=== PATIENT | male | born 2000 | race Caucasian/White ===

== ENCOUNTER 2025-03-17 07:55 | Outpatient (RCR) | payer OTHER, MEDICAID, SELFPAY | END 2025-03-17 23:59 | disposition home or self-care (01) | LOC: HO.PHPA 07:55 | PROVIDERS: Visit Provider Psychiatry & Neurology Psychiatry | DX: F90.9 Attention-deficit hyperactivity disorder, unspecified type (principal); F41.1 Generalized anxiety disorder; F10.90 Alcohol use, unspecified, uncomplicated ==

== ENCOUNTER 2025-05-31 13:04 | Outpatient (AMB) | payer OTHER, MEDICAID, SELFPAY ==
[2025-05-31 13:09] VITALS: BP 122/62; PULSE 74; O2SAT 98; BMI 19.7
--- NOTE | 2025-05-31 13:09 | MHC.OFFVIS ---
Vital Signs 05/31/25 13:09 Height 6 ft 3 in Weight 158 lb BMI 19.7 BP 122/62 Pulse 74 Pulse Oximetry (%) 98 Intake Visit Reasons: MAT Intake Allergies celiac Allergy (Severe, Uncoded 05/31/25 13:33) Unknown Medication List - Last Reconciled 05/31/25 by RICHI Pradhan albuterol sulfate 90 mcg/actuation 2 puffs inhalation Q6H PRN buspirone 10 mg PO TID HPI Comments Details: A 25-year-old male presents for a MAT intake r/t AUD. Received inpatient detox/rehab in [facility] from January 24 through March 18 and receive Vivitrol during stay. Reports no Vivitrol or naltrexone tablets 50 mg tablets since discharge and has had several relapses, although at present has abstain from alcohol consumption for the past 2 weeks. Denies opiates, and other substances. Acknowledges vaping for nicotine and smoking cannabis. Presently lives with mom, dad, brother, and twin sister. Reports will be starting a new job in [place]. Receives services at [facility] for mental health and will occasionally attend an AA meeting. Review of Systems Const All systems reviewed & are unremarkable except as noted in HPI and below Physical Exam Vital Signs: Last Vital Signs Pulse 74 05/31/25 13:09 BP 122/62 05/31/25 13:09 Pulse Ox 98 05/31/25 13:09 BMI result Body Mass Index 19.7 Const General: cooperative Results AMB 14 Panel Urine Drug Screen Urine Marijuana (THC) Positive Last Edit by Bucky Zurita CMA on 05/31/25 13:15 Urine Cocaine Negative Last Edit by Bucky Zurita CMA on 05/31/25 13:15 Urine Morphine Negative Last Edit by Bucky Zurita CMA on 05/31/25 13:15 Urine Methamphetamine Negative Last Edit by Bucky Zurita CMA on 05/31/25 13:15 Urine Amphetamine Negative Last Edit by Bucky Zurita CMA on 05/31/25 13:15 Urine Benzodiazepine Negative Last Edit by Bucky Zurita CMA on 05/31/25 13:15 Urine Barbiturates Negative Last Edit by Bucky Zurita CMA on 05/31/25 13:15 Urine Methadone Negative Last Edit by Bucky Zurita CMA on 05/31/25 13:15 Urine Buprenorphine Negative Last Edit by Bucky Zurita CMA on 05/31/25 13:15 Urine Tricyclic Antidepressant Negative Last Edit by Bucky Zurita CMA on 05/31/25 13:15 Urine MDMA Negative Last Edit by Bucky Zurita CMA on 05/31/25 13:15 Urine Oxycodone Negative Last Edit by Bucky Zurita CMA on 05/31/25 13:15 Urine Phencyclidine Negative Last Edit by Bucky Zurita CMA on 05/31/25 13:15 Urine Propoxyphene Negative Last Edit by Bucky Zurita CMA on 05/31/25 13:15 Results Reviewed Results Reviewed: Laboratory Last Values POC Urine Buprenorphine Negative 05/31/25 13:14 POC Urine Morphine Negative 05/31/25 13:14 POC Urine Oxycodone Negative 05/31/25 13:14 POC Urine Methadone Negative 05/31/25 13:14 POC Urine Propoxyphene Negative 05/31/25 13:14 POC Urine Barbiturates Negative 05/31/25 13:14 POC U Tricyclic Antidpr Negative 05/31/25 13:14 POC Urine PCP Negative 05/31/25 13:14 POC Ur Amphetamines Negative 05/31/25 13:14 POC Ur Methamphetamine Negative 05/31/25 13:14 POC Urine MDMA Negative 05/31/25 13:14 POC Ur Benzodiazepine Negative 05/31/25 13:14 POC Urine Cocaine Negative 05/31/25 13:14 POC Ur Marijuana (THC) Positive 05/31/25 13:14 Assessment & Plan Assessment & Plan (1) Alcohol use disorder: Code(s): F10.90 - Alcohol use, unspecified, uncomplicated Category: Medical Plan The plan of care is to start on naltrexone 50 mg, folic acid 1 mg, and thiamine 100 mg daily. Vivitrol ordered pending insurance approval. Education provided regarding risk reduction activities to minimize vaping and cannabis use and naltrexone/Vivitrol including purpose, side effects, and general medication information. Follow-up in 1 month or sooner if needed. Orders: Orders AMB 14 Panel Urine Drug Screen Today Z51.81 - Encounter for therapeutic drug level monitoring Medications: New naltrexone One tablet by mouth daily 50 mg PO DAILY 30 tabs 0RF 30 days folic acid One tablet by mouth daily. 1 mg PO DAILY 30 tabs 0RF 30 days thiamine mononitrate (vit B1) One tablet by mouth daily 100 mg PO DAILY 30 tabs 0RF 30 days Patient Instructions: - Restart naltrexone 50 mg daily. - Start thiamine 100 mg and folic acid 1 mg daily. - Vivitrol ordered pending insurance approval. - Engage in risk reduction activities to minimize vaping and cannabis use. - Continue to attend AA meetings. - Follow-up in 1 month or sooner if needed. - Call with questions, concerns, or to report side effects/new onset of symptoms to [facility]. - The patient verbalized understanding and agreed with plan of care. Coding Level of Care Code New Pt Level 3 (11070) Diagnoses Alcohol use disorder F10.90
--- OUTSIDE RECORDS SUMMARY | 2025-05-31 17:01 | XMS_ITS ---
Author Name [facility] Organization Unknown Care Team Organization Name Specialty Phone Email Start Date End Da te [facility] Termed, PROVIDER Primary Care 06/18/202304/15 [facility] Ye Oden Primary Care 11/20/202204/15 [facility] MIS BRENNAN Primary Care 07/23/2022
--- OUTSIDE RECORDS SUMMARY | 2025-05-31 17:01 | XMS_ITS | Clinical Summary ---
Author Organization 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 Role Phone Unavailable Primary Care Provider Unavailabl e Encounters Date Type Department Care Team Description 05/18/2025 Population Health Risk Score [facility] (C3) Department [address] [facility] [address] [place] [id number] Provider, Population Health Generic from Last 3 Months Social History Tobacco Use Types Packs/Day Years Used Date Smoking Tobacco: Never Assessed Sex and Gender Information Value Date Recorded Sex Assigned at Male 03/21/2025 8:35 AM EDT Legal Sex Male 11:15 AM EDT Gender Identity Male 03/21/2025 8:35 AM EDT Sexual Orientation Straight 03/21/2025 8: 35 AM EDT Plan of Treatment Health Maintenance Due Date Last Done Comments Depression Screening 2000 HIV Screening 2000 SDOH Screening 2000 Disability Screening 2000 Pneumococcal Vaccine: Pediatrics (0 to 5 Years) and At-Risk Patients (6 to 49) Years (2 of 3 - PCV) 05/07/2003 05/07/2002, 02/05/2001, 2000, Additional history exists Alcohol/Substance Use Screening 2012 Tobacco Screening 2012 Family Planning (PISQ) 01/29/2015 Hepatitis C Screening 01/29/2018 COVID-19 Vaccine ( season) 2025 09/22/2021, 02/05/2021, 01/14/2021 Influenza Vaccine (#1) 2025 , 06/15/2022, 06/15/2022, Additional history exists DTaP/Tdap/Td Vaccines (9 - Td or Tdap) 11/28/2032 11/28/2022, 07/22/2012, 07/17/2011, Additional history exists Zoster Vaccines (1 of 2) 01/29/2050 RSV Patients and Patients Aged 60 years or older (1 - 1-dose 75+ series) 01/29/2075 Hepatitis B Vaccines Completed 2000, 2000, 2000 HIB Vaccines Completed 05/26/2001, 05/16, 2000, Additional history exists IPV Vaccines Completed 01/28/2005, 05/16, 2000, Additional history exists HPV Vaccines Completed 08/01/2014, 09/15, 07/26/2013 Meningococcal Vaccine Completed 08/09/2016, 011 Hepatitis A Vaccines Aged Out No long er eligible based on patient's age to complete this topic Meningococcal B Vaccine Aged Out No l onger eligible based on patient's age to complete this topic RSV under 20 months Aged Out No longe r eligible based on patient's age to complete this topic Rotavirus Vaccines Aged Out No longer eligible based on patient's age to complete this topic Insurance [facility] [id number]
--- OUTSIDE RECORDS SUMMARY | 2025-05-31 17:01 | XMS_ITS | Clinical Summary ---
Author Organization [facility] [address] [facility] Address [address] [place] [phone] Phone Care Team Providers Care Cash Processing Specialist Name Role Phone Zehra Christensen MD Primary Care Provider [phone] Allergies Active Allergy Reactions Criticality Noted Date Comments Gluten 04/06/2015 Gluten Meal Medications albuterol HFA (PROAIR HFA ; PROVENTIL HFA ; VENTOLIN HFA) 90 mcg/actuation inhaler Inhale 2 Puffs into the lungs every 4 hours as needed for Cough or Wheezing. 3 Active famotidine (PEPCID) 20 mg tablet Take 1 Tablet by mouth 2 times daily as needed for Heartburn. 3 Active fluticasone propionate (FLONASE) 50 mcg/actuation nasal spray 2 Sprays by Nasal route daily. 3 Active loratadine (CLARITIN) 10 mg tablet Take 1 Tablet by mouth daily. 3 Active melatonin 3 mg capsule Take by mouth. Activ e MULTIVITAMIN ORAL Take by mouth. Activ e naloxone (NARCAN) 4 mg/actuation nasal spray KIT (Take home med ONLY) Administer 1 spray (4 mg total) into affected nostril(s) See administration instructions. Active busPIRone (BUSPAR) 10 mg tablet Take 1 tablet (10 mg total) by mouth 3 (three) times a day. 90 tablet 5 Active Active Problems Problem Noted Date Diagnosed Date Depressive disorder 09/13/2024 Hearing loss in right ear 09/13/2024 Overview (09/13/2024): partial Nausea 09/13/2024 Anxiety 01/04/2023 Uncomplicated asthma 05/01/2017 Celiac disease 03/09/2013 Overview (09/13/2024): Dr. Suero - biopsy positive ADD (attention deficit disorder) 07/17/2011 Behavior problem 07/17/2011 Encounters Date Type Department Care Team Description 03/29/2025 12:30 PM EDT Office Visit Adult Medicine [address] [phone] Zehra Christensen MD Hospital discharge follow-up (Primary Dx); Alcohol use disorder; Cannabis use disorder in remission; Generalized anxiety disorder 03/09/2025 Telephone Adult Medicine [address] [phone] Zehra Christensen MD from Last 3 Months Immunizations Name Administration Dates Next Due DTaP (Infanrix) 6wks to less than 7yo ,08/20/2001,2000,05/21,2000 [id number] (Pentacel) 2mo to less than 5yo 05/26/2001,2000,2000,04/01 HPV, Quadrivalent 08/01/2014,09/28/2013,07/26/20 13 Hepatitis B Pediatric (Enger ix B; Recombivax HB) to less than 20 yo 2000,2000,2000 IPV Inactivated polio (Ipol) 6wks and older 01/28/2005,2000,2000,04/01 Influenza Quadravalent, MDCK , 0.5ml, preservative free (Flucelvax) 6mo and older 06/12/2020 Influenza trivalent, 0.5mL, preservative free (Fluarix; FluLaval; Fluzone) ages 6mo and older (Afluria) 3 years and older 06/15/2022,07/07/2018,07/10/2017,08/09,08/02/2015,08/01/2014,07/26/2013 ,07/17/2011,07/17/2010,07/21/2009,12/2007,08/11/2007,07/18/2006, 5 Influenza trivalent, with pr eservative (Fluzone; Afluria) 6mo and older 07/22/2012 MMR, measles mumps and rubel la Live (Priorix; M-M-R II) 12mo and older 02/09/2004,05/26/2001 Meningococcal MCV4P 08/09/2016,07/17/2011 Pneumococcal Conjugate Vacci ne, 7 Valent 02/05/2001,2000,2000,05/21 Pneumococcal polysaccharide 23 valent (Pneumovax 23) 2yo and older 05/07/2002 Tdap Tetanus diptheria acell ular pertussis (Boostrix; Adacel) 7yo and older 11/28/2022,07/22/2012,07/17/2011 Varicella live (Varivax) 12m o and older 03/09/2005,02/05/2001 Surgical History Surgery Date Site/Laterality Comments OTHER SURGICAL HISTORY PROCEDURE: DENIES PREVIOUS SURGERY COLONOSCOPY PROCEDURE: HISTORICAL COLONOSCOPY Medical History Medical History Date Comments Routine or child heal th check DX:Routine or child h ealth check Unspecified otitis media mult DX:Unsp ecified otitis media Acute bronchiolitis due to o ther infectious organisms 07/2000 DX:Acute bronchiolitis due t o other infectious organisms Unspecified asthma(493.90) 10/16,12/15,06/16 DX:Un specified asthma(493.90); COMMENT: RAD Varicella without mention of complication 04/2005 DX:Varicella without mention of complication Celiac disease 03/09/2013 DX:Celiac diseas e Hearing loss in right ear DX:Hea ring loss in right ear; COMMENT: partial H. pylori infection 2014 DX:H. pylori infection Nausea DX:Nausea Depressive disorder DX:Depressiv e disorder Anxiety 01/04/2023 DX:Anxiety Abdominal cramping DX:Abdominal cramping Irritable bowel syndrome DX:Irri table bowel syndrome Family History Medical History Relation Name Comments Hypertension Father DM type 2. Lung cancer Maternal Grandfather Lung cancer Maternal Grandmother D Diabetes Paternal Grandfather Heart attack Paternal Grandfather Other: ABD ANEURYSM Paternal Grandfather Relation Name Status Comments Brother Alive [id number] D, Jonathan and donald Father Alive 1964 - overwe ht;dm, HTN Maternal Grandfather Lung ca ncer, Alcoholism and smoking; CHOL Maternal Grandmother Lung ca ncer Mother Alive 1967 - tachycar kya arrhythmia Paternal Grandfather [place], dm Paternal Grandmother Alive Healthy X SMOKING Sister Alive -CARITO - h ealthy Social History Tobacco Use Types Packs/Day Years Used Date Smoking Tobacco: Every Day Smokeless Tobacco: Never Tobacco Cessation:Ready to Q uit: Not Asked; Counseling Given: Not Answered Alcohol Use Standard Drinks/Week Comments No 0 (1 standard drink = 0.6 oz pur e alcohol) Sex and Gender Information Value Date Recorded Sex Assigned at Not on file Legal Sex Male 12:41 AM EST Gender Identity Not on file Sexual Orientation Not on file Obstetrics History Last Filed Vital Signs Vital Sign Reading Time Taken Comments Blood Pressure 104/62 03/29/2025 12:55 PM EDT Pulse 76 03/29/2025 12:55 PM EDT Temperature 36.6 C (97.8 F) 03/29/2025 12:55 PM EDT Respiratory Rate 16 03/29/2025 12:55 PM EDT Oxygen Saturation 98% 03/29/2025 12:55 PM EDT Inhaled Oxygen Concentration - - Weight 76.2 kg (168 lb) 03/29/2025 12:55 PM EDT Height 190.5 cm (6' 3 ) 03/29/2025 12:55 PM EDT Body Mass Index 21 03/29/2025 12:55 PM EDT Plan of Treatment Upcoming Encounters Date Type Department Care Team (Late st Contact Info) Description 10/12/2025 9:30 AM EST Office Visit Adult Medicine [address] [phone] Zehra Christensen MD [address] [place] [address] Health Maintenance Due Date Last Done Comments Hepatitis A Vaccines (1 of 2 - Risk 2-dose series) 01/29/2019 HIV Screening 08/24/2022 Hepatitis C Screening 08/24/2022 Social Influencers of Health Screening 08/24/2022 Depression Screening 09/15/2024 COVID-19 Vaccine (4 - season) 2025 09/22/2021, 02/05/2021, 01/14/2021 Influenza Vaccine (#1) 2025 5, 06/15/2022, 06/12/2020, Additional history exists Cholesterol Screening (Lipid Panel) 06/12/2025 06/12/2020 DTaP,Tdap,and Td Vaccines (9 - Td or Tdap) 11/28/2032 11/28/2022, 07/22/2012, 07/17/2011, Additional history exists Pneumococcal Vaccine: Pediatrics (0 to 5 Years) and At-Risk Patients (6 to 49 Years) (2 of 2 - PCV20 or PCV21) 01/29/2050 05/07/2002, 02/05/2001, 2000, Additional history exists Hepatitis B Vaccines Completed 2000, 2000, 2000 HIB Vaccines Completed 05/26/2001, 05/16, 2000, Additional history exists MMR Vaccines Completed 02/09/2004, 05/26/2001 IPV Vaccines Completed 01/28/2005, 05/16, 2000, Additional history exists Varicella Vaccines Completed 03/09/2005, 02/05/2001 HPV Vaccines Completed 08/01/2014, 09/15, 07/26/2013 Meningococcal ACWY Vaccine Completed 08/09/2016, Meningococcal B Vaccine Aged Out No l onger eligible based on patient's age to complete this topic RSV Immunization Patients Under 20 months Aged Out No longer eligible based on patient's age to complete this topic Procedures Procedure Name Priority Date/Time Associated Diagnosis Comments LIPID PANEL Routine 06/12/2020 from Last 3 Months or Most Recently Relevant to Health Maintenance Results * Lipid panel (06/12/2020) LDL/HDL Ratio 3 0 - 4 Triglycerides 78 0 - 150 mg/dL Cholesterol 129 0 - 200 mg/dL HDL 50 >=40 mg/dL LDL Cholesterol 64 0 - 100 mg/dL Blood Venous blood specimen / Unknown us Historical Provider LAB BLOOD ORDERABLES Glil l Result from Last 3 Months or Most Recently Relevant to Health Maintenance Insurance [employer] [place] [id number] Care Teams Cash Processing Specialist Relationship Specialty Start Date End Date Zehra Christensen MD [address] [place] [phone] PCP - General Internal Medicine 10/26/24
== END 2025-05-31 13:34 | disposition home or self-care (01) ==
PROVIDERS: Visit Provider Clinical Nurse Specialist Psychiatric/Mental Health
DX: F10.90 Alcohol use, unspecified, uncomplicated (principal); Z51.81 Encounter for therapeutic drug level monitoring
CPT/HCPCS: 99203

== ENCOUNTER → 2025-05-31 13:04 | Outpatient (BNVA) | payer OTHER, MEDICAID, SELFPAY | PROVIDERS: Visit Provider Clinical Nurse Specialist Psychiatric/Mental Health | DX: F10.90 Alcohol use, unspecified, uncomplicated (principal) | CPT/HCPCS: 80307 ==

== ENCOUNTER 2025-06-30 10:07 | Outpatient (AMB) | payer OTHER, MEDICAID, SELFPAY ==
--- NOTE | 2025-06-30 08:39 | AM.OFFVISNUR ---
Vital Signs 06/30/25 10:14 BP 100/60 Pulse 60 Pulse Oximetry (%) 99 Intake Visit Reasons: Injection Allergies celiac Allergy (Severe, Uncoded 06/30/25 10:15) Unknown Nursing Note Sandor presents today for his second Vivitrol injection, his first one was administered while at inpatient treatment center between January and March of 2025. He reports relapse after discharge though has now been alcohol free for over 6 weeks. Sandro is alert and oriented x 4, calm, cooperative and presents with appropriate affect. Sandro shared his history and current coping strategies. Currently seeking a psychiatrist with no response- one of his providers is assisting him with contact and follow-up, he also plans to inquire if he can re-establish care with [facility] where he was engaged with counseling for many years as a minor. Discussed AA and recommended a youth group that may be a good match for him- resource book given. Naltrexone contract reviewed and signed, Vivitrol education and ID materials given. Sandro reports no further questions at this time and knows to call the office with any questions or concerns. Follow up in 4 weeks for next injection. Assessment & Plan Assessment & Plan Orders: Orders AMB Naltrexone Injection Patient Supplied (NC) Today F10.90 - Alcohol use, unspecified, uncomplicated Medications: New Vivitrol ER (naltrexone microspheres) 380 mg IM ONCE 1 ea 0RF NS F10.90 - Alcohol use, unspecified, uncomplicated Coding
[2025-06-30 10:14] VITALS: BP 100/60; PULSE 60; O2SAT 99
--- OUTSIDE RECORDS SUMMARY | 2025-06-30 12:12 | XMS_ITS | Clinical Summary ---
Author Organization [facility] Address [address] [place] [phone] Phone Care Team Providers Care Gas Analyst Name Role Phone Zehra Christensen MD Primary Care Provider [phone] Allergies Active Allergy Reactions Criticality Noted Date Comments Gluten 04/06/2015 Gluten Meal Medications albuterol HFA (PROAIR HFA ; PROVENTIL HFA ; VENTOLIN HFA) 90 mcg/actuation inhaler Inhale 2 Puffs into the lungs every 4 hours as needed for Cough or Wheezing. 01/01/20 23 Active famotidine (PEPCID) 20 mg tablet Take 1 Tablet by mouth 2 times daily as needed for Heartburn. 02/18/20 23 Active fluticasone propionate (FLONASE) 50 mcg/actuation nasal spray 2 Sprays by Nasal route daily. 01/29/20 23 Active loratadine (CLARITIN) 10 mg tablet Take 1 Tablet by mouth daily. 01/29/20 23 Active melatonin 3 mg capsule Take by mouth. Activ e MULTIVITAMIN ORAL Take by mouth. Activ e naloxone (NARCAN) 4 mg/actuation nasal spray KIT (Take home med ONLY) Administer 1 spray (4 mg total) into affected nostril(s) See administration instructions. Active busPIRone (BUSPAR) 10 mg tablet Take 1 tablet (10 mg total) by mouth 3 (three) times a day. 90 tablet 03/29/20 25 Active amoxicillin-cl avulanate (AUGMENTIN) 875-125 mg per tablet Take 1 tablet by mouth every 12 (twelve) hours for 7 days. 14 tablet 06/24/20 25 025 Active ketorolac (TORADOL) 10 mg tablet Take 1 tablet (10 mg total) by mouth every 6 (six) hours if needed for moderate pain for up to 5 days. 20 tablet 06/24/20 25 025 Active Problems Problem Noted Date Diagnosed Date Depressive disorder 09/13/2024 Hearing loss in right ear 09/13/2024 Overview (09/13/2024): partial Nausea 09/13/2024 Anxiety 01/04/2023 Uncomplicated asthma 05/01/2017 Celiac disease 03/09/2013 Overview (09/13/2024): Dr. Suero - biopsy positive ADD (attention deficit disorder) 07/17/2011 Behavior problem 07/17/2011 Encounters Date Type Department Care Team Description 06/24/2025 1:05 AM EDT - 06/24/2025 3:36 AM EDT Emergency [facility] Emergency [address] [place] [address] Acute non-recurrent sinusitis, unspecified location (Primary Dx) Discharge Disposition: Home or Self Care from Last 3 Months Immunizations Immunization Administration Dates Next Due DTaP (Infanrix) 6wks to less than 7yo ,08/20/2001,2000,05/21,2000 [id number] (Pentacel) 2mo to less than 5yo 05/26/2001,2000,2000,04/01 HPV, Quadrivalent 08/01/2014,09/28/2013,07/26/20 13 Hepatitis B Pediatric (Enger ix B; Recombivax HB) to less than 20 yo 2000,2000,2000 IPV Inactivated polio (Ipol) 6wks and older 01/28/2005,2000,2000,04/01 Influenza Quadravalent, MDCK , 0.5ml, preservative free (Flucelvax) 6mo and older 06/12/2020 Influenza trivalent, 0.5mL, preservative free (Fluarix; FluLaval; Fluzone) ages 6mo and older (Afluria) 3 years and older 06/15/2022,07/07/2018,07/10/2017,08/09,08/02/2015,08/01/2014,07/26/2013 ,07/17/2011,07/17/2010,07/21/2009,12/0 12/2007,08/11/2007,07/18/2006, 5 Influenza trivalent, with pr eservative (Fluzone; [...] Grandfather Relation Name Status Comments Brother Alive [id number], Touretts and aspergers Father Alive 1964 - we ht;dm, HTN Maternal Grandfather Lung ca ncer, Alcoholism and smoking; CHOL Maternal Grandmother Lung ca ncer Mother Alive 1967 - tachycar kya arrhythmia Paternal Grandfather [place], dm Paternal Grandmother Alive Healthy X SMOKING [...] Sign Reading Time Taken Comments Blood Pressure 111/72 06/24/2025 2:05 AM EDT Pulse 58 06/24/2025 2:05 AM EDT Temperature 36.4 C (97.5 F) 06/24/2025 2:05 AM EDT Respiratory Rate 12 06/24/2025 2:05 AM EDT Oxygen Saturation 99% 06/24/2025 2:05 AM EDT Inhaled Oxygen Concentration - - Weight 77.1 kg (170 lb) 06/23/2025 8:03 PM EDT Height 190.5 cm (6' 3 ) 06/23/2025 8:03 PM EDT Body Mass Index 21.25 06/23/2025 8:03 PM EDT Plan of Treatment Upcoming Encounters Date Type Department Care Team (Late st Contact Info) Description 10/12/2025 9:30 AM EST Office Visit Adult Medicine [address] [phone] Zehra Christensen MD [address], [place] Health Maintenance Due Date Last Done Comments Hepatitis A Vaccines (1 of 2 - Risk 2-dose series) 01/29/2019 HIV Screening 08/24/2022 Hepatitis C Screening 08/24/2022 Social Influencers of Health Screening 08/24/2022 Depression Screening 09/15/2024 COVID-19 Vaccine ( season) 2025 09/22/2021, 02/05/2021, 01/14/2021 Influenza Vaccine (#1) 2025 , 06/15/2022, 06/12/2020, Additional history exists Cholesterol Screening (Lipid Panel) 06/12/2025 06/12/2020 DTaP,Tdap,and Td Vaccines (9 - Td or Tdap) 11/28/2032 11/28/2022, 07/22/2012, 07/17/2011, Additional history exists Pneumococcal Vaccine: Pediatrics (0 to 5 Years) and At-Risk Patients (6 to 49 Years) (2 of 2 - PCV20 or PCV21) 01/29/2050 05/07/2002, 02/05/2001, 2000, Additional history exists RSV Immunization Adult Patients (1 - 1-dose 75+ series) 01/29/2075 Hepatitis [...] Procedure Name Priority Date/Time Associated Diagnosis Comments CT MAXILLOFACIAL W CONTRAST STAT 06/24/2025 2:48 AM EDT CBC WITH AUTO DIFFERENTIAL STAT 06/23/2025 11:35 PM EDT LACTATE, WITH REFLEX STAT 06/23/2025 11:35 PM EDT COMPREHENSIVE METABOLIC PANEL STAT 06/23/2025 11:35 PM EDT CBC AND DIFFERENTIAL STAT 06/23/2025 11:35 PM EDT CULTURE BLOOD STAT 06/23/2025 11:35 PM EDT LIPID PANEL Routine 06/12/2020 from Last 3 Months or Most Recently Relevant to Health Maintenance Results * CT Maxillofacial w Contrast (06/24/2025 2:48 AM EDT) Anatomical Region Laterality Modality Head and Neck Computed Tomogra phy 06/24/2025 3:12 AM EDT Impressions 06/24/2025 3:12 AM EDT 1. No acute maxillofacial findings. This document has been electronically signed by: Chava Nash MD on 06/24/2025 03:12:29 Narrative 06/24/2025 3:12 AM EDT INDICATION: pain CT maxillofacial with contrast Comparison: None provided Findings: No acute fractures. No dislocations. Temporomandibular joints are intact. Paranasal sinuses and mastoid air cells clear. Left periorbital soft tissue metallic piercing. Otherwise unremarkable orbits. Visualized intracranial contents are within normal limits. No foreign bodies. Procedure Note Chava Nash - 06/24/2025 INDICATION: pain CT maxillofacial with contrast Comparison: None provided Findings: No acute fractures. No dislocations. Temporomandibular joints are intact. Paranasal sinuses and mastoid air cells clear. Left periorbital soft tissue metallic piercing. Otherwise unremarkable orbits. Visualized intracranial contents are within normal limits. No foreign bodies. IMPRESSION: 1. No acute maxillofacial findings. This document has been electronically signed by: Chava Nash MD on 06/24/2025 03:12:[address] PROCEDURES Final Res ult * Lactate, with reflex (06/23/2025 11:35 PM EDT) Pathologist [facility] LACTIC ACID 1.1 0.4 - 2.0 mmol/L LAB CHEMISTRY METHOD 06/24/2025 12:51 AM EDT [facility] Blood Venous blood specimen / Unknown Venipuncture / Unknown 06/23/2025 11:35 PM EDT 06/23/2025 11:55 PM EDT Sergio KRISHNAMURTHY LAB BLOOD ORDERABLES Final Result [facility] [address] [place] [address], [place] [phone] * CBC auto differential (06/23/2025 11:35 PM EDT) [facility] WBC 7.8 4.8 - 10.8 K/mcL LAB HEMETOLOGY METHOD 06/24/2025 12:01 AM EDT [facility] RBC 4.90 4.50 - 5.50 M/mcL LAB HEMETOLOGY METHOD 06/24/2025 12:01 AM EDT [facility] Hemoglobin 14.7 13.5 - 17.5 g/dL LAB HEMETOLOGY METHOD 06/24/2025 12:01 AM EDT [facility] Hematocrit 43.1 42.0 - 54.0 % LAB HEMETOLOGY METHOD 06/24/2025 [facility] MCV 88.9 79.0 - 98.0 FL LAB HEMETOLOGY METHOD 06/24/2025 12:01 AM EDT [facility] MCH 30.3 27.0 - 32.0 pcg LAB HEMETOLOGY METHOD 06/24/2025 12:01 AM [facility] MCHC 34.1 32.0 - 37.0 g/dL LAB HEMETOLOGY METHOD 06/24/2025 12:01 AM [facility] RDW 11.7 11.0 - 15.0 % LAB HEMETOLOGY METHOD 06/24/2025 12:01 AM [facility] Platelets 304 130 - 400 K/mcL LAB HEMETOLOGY METHOD 06/24/2025 12:01 AM [facility] MPV 10.1 7.0 - 11.0 FL LAB HEMETOLOGY METHOD 06/24/2025 12:01 AM [facility] NRBC 0.0 <1.0 % LAB HEMETOLOGY METHOD 06/24/2025 12:01 AM [facility] NRBC Absolute 0.00 <0.10 K/mcL LAB HEMETOLOGY METHOD 06/24/2025 12:01 AM [facility] Neutrophils Relative 44.5 % LAB HEMETOLOGY METHOD 06/24/2025 12:01 AM [facility] Lymphocytes Relative 43.1 % LAB HEMETOLOGY METHOD 06/24/2025 12:01 AM [facility] Monocytes Relative 6.9 % LAB HEMETOLOGY METHOD 06/24/2025 12:01 AM [facility] Eosinophils Relative 4.5 % LAB HEMETOLOGY METHOD 06/24/2025 12:01 AM [facility] Basophils Relative 0.9 % LAB HEMETOLOGY METHOD 06/24/2025 12:01 AM [facility] Immature Granulocytes Relative 0.1 % LAB HEMETOLOGY METHOD 06/24/2025 12:01 AM [facility] Neutrophils Absolute 3.46 1.50 - 7.00 K/mcL LAB HEMETOLOGY METHOD 06/24/2025 12:01 AM EDT [facility] Lymphocytes Absolute 3.36 1.00 - 5.00 K/mcL LAB HEMETOLOGY METHOD 06/24/2025 12:01 AM EDT [facility] Monocytes Absolute 0.54 0.20 - 1.00 K/mcL LAB HEMETOLOGY METHOD 06/24/2025 12:01 AM EDT [facility] Eosinophils Absolute 0.35 0.00 - 0.50 K/[facility] LAB HEMETOLOGY METHOD 06/24/2025 12:01 AM EDT [facility] Basophils Absolute 0.07 0.00 - 0.20 K/mcL LAB HEMETOLOGY METHOD 06/24/2025 12:01 AM EDT [facility] Immature Granulocytes Absolute 0.01 0.00 - 0.03 K/[facility] LAB HEMETOLOGY METHOD 06/24/2025 12:01 AM EDT [facility] Blood Venous blood specimen / Unknown Venipuncture / Unknown 06/23/2025 11:35 PM EDT 06/23/2025 11:54 PM EDT Sergio KRISHNAMURTHY LAB BLOOD ORDERABLES Final Result [facility] [address] [place] [address], * Blood culture (06/23/2025 11:35 PM EDT) Culture, Blood No growth at 5 days 06/29/2025 1:02 AM EDT [facility] Blood Venous blood specimen / Unknown Venipuncture / Unknown 06/23/2025 11:35 PM EDT 06/23/2025 11:54 PM EDT Sergio KRISHNAMURTHY LAB MICROBIOLOGY - GENERAL ORDERABLES Final Result [facility] [address] [place] [address], * Comprehensive metabolic panel (06/23/2025 11:35 PM EDT) Sodium 139 133 - 145 mmol/L LAB CHEMISTRY METHOD 06/24/2025 12:40 AM [facility] Potassium 4.0 3.5 - 5.5 mmol/L LAB CHEMISTRY METHOD 06/24/2025 12:40 AM [facility] Chloride 106 96 - 110 mmol/L LAB CHEMISTRY METHOD 06/24/2025 12:40 AM [facility] CO2 27 21 - 32 mmol/L LAB CHEMISTRY METHOD 06/24/2025 12:40 AM [facility] Anion Gap 6 3 - 11 LAB CHEMISTRY METHOD 06/24/2025 12:40 AM [facility] Glucose 87 70 - 100 mg/dL LAB CHEMISTRY METHOD 06/24/2025 12:40 AM [facility] BUN 10 5 - 25 mg/dL LAB CHEMISTRY METHOD 06/24/2025 12:40 AM [facility] Creatinine 0.77 0.70 - 1.30 mg/dL LAB CHEMISTRY METHOD 06/24/2025 12:40 AM [facility] eGFR 127 >=60 mL/min/1. 73m2 LAB CHEMISTRY METHOD 06/24/2025 12:40 AM [facility] Comment:Calculation based on the Chronic Kidney Disease Epidemiology Collaboration (CKD-EPI) equation refit without adjustment for race. BUN/Creatinine Ratio 13.0 LAB CHEMISTRY METHOD 06/24/2025 12:40 AM [facility] Calcium 10.0 8.5 - 10.5 mg/dL LAB CHEMISTRY METHOD 06/24/2025 12:40 [facility] AST (SGOT) 19 10 - 42 unit/L LAB CHEMISTRY METHOD 06/24/2025 12:40 AM [facility] ALT (SGPT) 19 10 - 60 unit/L LAB CHEMISTRY METHOD 06/24/2025 12:40 AM [facility] Alkaline Phosphatase 60 42 - 121 unit/L LAB CHEMISTRY METHOD 06/24/2025 12:40 AM [facility] Total Protein 7.4 6.0 - 8.0 g/dL LAB CHEMISTRY METHOD 06/24/2025 12:40 AM [facility] Albumin 4.6 3.2 - 5.0 g/dL LAB CHEMISTRY METHOD 06/24/2025 12:40 AM [facility] Total Bilirubin 0.5 0.0 - 1.4 mg/dL LAB CHEMISTRY METHOD 06/24/2025 12:40 AM [facility] Blood Venous blood specimen / Unknown Venipuncture / Unknown 06/23/2025 11:35 PM EDT 06/23/2025 11:54 PM EDT Sergio KRISHNAMURTHY LAB BLOOD ORDERABLES Final Result [facility] [address] [place] [address], * Lipid panel (06/12/2020) LDL/HDL Ratio 3 0 - 4 Triglycerides 78 0 - 150 mg/dL Cholesterol 129 0 - 200 mg/dL HDL 50 >=40 mg/dL LDL Cholesterol 64 0 - 100 mg/dL Blood Venous blood specimen / Unknown Historical Provider LAB BLOOD ORDERABLES Gill l Result from Last 3 Months or Most Recently Relevant to Health Maintenance Insurance [employer] [id number] MEDICA[place] - [place] Care Teams Gas Analyst Relationship Specialty Start Date End Date Zehra Christensen MD [address] [place] [phone] PCP - General Internal Medicine 10/26/24
--- OUTSIDE RECORDS SUMMARY | 2025-06-30 12:12 | XMS_ITS | Clinical Summary ---
Author Organization [employer] Address [address] [facility] [address] [place] [address] Care Team Providers Care Mobility Manager Name Role Phone Unavailable Primary Care Provider Unavailabl e Encounters Date Type Department Care Team Description 05/18/2025 Population Health Risk Score [facility] (C[facility]) Department [address] [facility] [address] [place] [phone] Provider, Population Health Generic from Last 3 [...] patient's age to complete this topic Insurance [facility] [id number]
== END 2025-06-30 10:56 | disposition home or self-care (01) ==
LOC: HO.HCC 10:07
DX: F10.90 Alcohol use, unspecified, uncomplicated (principal)

== ENCOUNTER → 2025-06-30 10:07 | Outpatient (BNVA) | payer OTHER, MEDICAID, SELFPAY | DX: F10.90 Alcohol use, unspecified, uncomplicated (principal); Z79.899 Other long term (current) drug therapy | CPT/HCPCS: 96372; J2315 ==